=== PATIENT | male | born 1960 | race Caucasian/White ===

== ENCOUNTER 2021-07-06 09:53 | Emergency (ER) | payer OTHER | END 2021-07-06 10:24 | disposition home or self-care (01) | LOC: LB.ED 09:53 | DX: S05.02XA Injury of conjunctiva and corneal abrasion without foreign body, left eye, initial encounter (principal); H10.32 Unspecified acute conjunctivitis, left eye; W22.09XA Striking against other stationary object, initial encounter | CPT/HCPCS: 99283 ==